=== PATIENT | female | born 1955 | race Caucasian/White ===

== ENCOUNTER → 2020-09-10 15:45 | Outpatient (CLI) | payer OTHER, SELFPAY ==
--- NOTE | ~2020-09-10 | MM_ITS ---
EXAMINATION: MM screening sena BI w katlin HISTORY: Screening TECHNIQUE: Craniocaudal and mediolateral oblique 3-D tomosynthesis images were obtained and synthetic 2-D images were generated. CAD analysis was submitted and interpreted. COMPARISON: Comparison to multiple prior studies sequentially, with oldest reviewed study dated 09/09. BREAST PARENCHYMAL COMPOSITION: There are scattered areas of fibroglandular density. FINDINGS: There is focal asymmetry medially in the left breast on CC view. There is focal asymmetry s uperiorly in the right breast on MLO view. IMPRESSION: 1. Bilateral breast asymmetries. 2. Additional spot compression and mediolateral views with possible follow-up breast ultrasound recom mended. BI-RADS Category 0: Incomplete: Needs additional imaging evaluation. Reviewed, dictated and finalized at location A. BALL GLOVE STUFFER IMPRESSION: 1. Bilateral breast asymmetries. 2. Additional spot compression and mediolateral views with possible follow-up b reast ultrasound recommended. BI-RADS Category 0: Incomplete: Needs additional imaging evaluation.
== END ==
PROVIDERS: Visit Provider Nurse Practitioner
DX: Z12.31 Encounter for screening mammogram for malignant neoplasm of breast (principal); R92.8 Other abnormal and inconclusive findings on diagnostic imaging of breast
CPT/HCPCS: 77063; 77067

== ENCOUNTER → 2020-10-22 08:35 | Outpatient (CLI) | payer OTHER, SELFPAY ==
--- NOTE | ~2020-10-22 | MMUS_ITS ---
EXAMINATION: MM diagnostic sena BI w katlin, US breast LT limited HISTORY: Left breast asymmetry on screening mammogram TECHNIQUE: Additional 3-D tomosynthesis images of the left breast were performed and synthetic 2-D im ages were generated. CAD analysis was submitted and interpreted. High resolution limited left breast ultrasound was performed. COMPARISON: 09/10/2020, 09/06/2019, 07/11/2014 FINDINGS: MAMMOGRAPHIC FINDINGS: An asymmetry persists in the far posterior third of the inner left breast at the 9:00 location 10 cm from the nipple on the craniocaudal view. No mammographic correlate is identified on the additional m ammographic views. ULTRASOUND: There is no evidence of focal abnormal solid or cystic lesion in the vicinity of the mammographic fin ding in question. IMPRESSION: 1. Probably benign left breast asymmetry. 2. Recommend 6 month follow-up left diagnostic mammogram and possible ultrasound. BI-RADS category 3, probably benign findings. Reviewed, dictated and finalized at location A. HOST IMPRESSION: 1. Probably benign left breast asymmetry. 2. Recommend 6 month follow-up left diagnostic mammogram and possible ultrasoun d. BI-RADS category 3, probably benign findings.
== END ==
PROVIDERS: PCP Family Medicine; Visit Provider Obstetrics & Gynecology Gynecology
DX: R92.8 Other abnormal and inconclusive findings on diagnostic imaging of breast (principal)
CPT/HCPCS: 76642; 77062; 77066; G0279

== ENCOUNTER → 2021-07-01 11:20 | Outpatient (CLI) | payer BC, SELFPAY ==
--- NOTE | ~2021-07-01 | US_ITS ---
EXAMINATION: US soft tissue head and neck DATE: 07/01/2021 11:54 INDICATION: Palpable abnormality at the medial side of the right clavicle TECHNIQUE: Multiple grayscale and Doppler ultrasound images of the medial right clavicular region of concern were obtained. COMPARISON: Cervical spine radiographs dated 10/01/2016 FINDINGS: The palpable abnormality of concern corresponds to the right manubrial clavicular articulation. There appears to be a greater than expected degree of incongruity between the superficial margins of both bones suggesting some subluxation likely related to prior trauma. The medial head of the right clavic le also appears to extend close to the skin surface and the contralateral ureter at the left clavicle . There appears to be some corresponding asymmetric cephalad subluxation of the medial head of the ri ght clavicle relative to the left on the prior radiographs. There is an approximately 3.0 x 2.2 x 2.2 cm region of mixed decreased echogenicity with internal hyperechoic foci of shadowing calcification which is situated between the medial head of the right clavicle and the manubrium and likely represen ts combination of synovitis and dystrophic calcification. No other abnormal masses or fluid collectio ns identified. IMPRESSION: 1. Palpable abnormality of concern appears to correspond to the medial head of the right clavicle wit h asymmetric mild right clavicular manubrial subluxation relative to the left manubrial clavicular ar ticulation, likely sequela of old trauma. No other abnormal masses or fluid collections identified. Reviewed, dictated and finalized at location B. IMPRESSION: 1. Palpable abnormality of concern appears to correspond to the medial head of the right clavicle with asymmetric mild right clavicular manubrial subluxation relative to the left manubrial clavicular articulation, likely sequela of old t rauma. No other abnormal masses or fluid collections identified.
== END ==
PROVIDERS: PCP Family Medicine; Visit Provider Family Medicine
DX: M79.89 Other specified soft tissue disorders (principal)
CPT/HCPCS: 76536

== ENCOUNTER → 2021-08-16 07:59 | Outpatient (CLI) | payer BC, SELFPAY ==
--- NOTE | ~2021-08-16 | MMUS_ITS ---
EXAMINATION: MM diagnostic sena LT w katlin, US breast LT limited HISTORY: Follow-up for probably benign left breast asymmetry TECHNIQUE: Craniocaudal, mediolateral, and mediolateral oblique 3-D tomosynthesis images of left were performed and synthetic 2-D images were generated. CAD analysis was submitted and interpreted. High resolution limited left breast ultrasound was performed. COMPARISON: 10/22/2020, 09/10/2020, 09/06/2019, 07/11/2014 BREAST PARENCHYMAL COMPOSITION: There are scattered areas of fibroglandular density. FINDINGS: MAMMOGRAPHIC FINDINGS: There is a stable asymmetry in the far posterior third of the inner left breast on the craniocaudal v iew. No suspicious interval change is identified. There is no suspicious calcification or architectur al distortion. ULTRASOUND: There is no evidence of focal abnormal solid or cystic mass in the vicinity of the mammographic findi ng in question. IMPRESSION: 1. Probably benign left breast asymmetry. 2. Recommend 6 month follow-up left diagnostic mammogram and possible ultrasound. BI-RADS category 3, probably benign findings. Reviewed, dictated and finalized at location A. IMPRESSION: 1. Probably benign left breast asymmetry. 2. Recommend 6 month follow-up left diagnostic mammogram and possible ultrasoun d. BI-RADS category 3, probably benign findings.
== END ==
PROVIDERS: Visit Provider Obstetrics & Gynecology Gynecology
DX: R92.8 Other abnormal and inconclusive findings on diagnostic imaging of breast (principal)
CPT/HCPCS: 76642; 77061; 77065; G0279

== ENCOUNTER → 2022-02-17 07:59 | Outpatient (CLI) | payer MEDICARE, SELFPAY ==
--- NOTE | ~2022-02-17 | DEXA_ITS ---
Bone Density Report Name: JEFFREY FONSECA Age: 66 Sex: Female Ethnicity: Radha Date of : 1955 Indication: osteopenia; postmenopausal Referring Provider: NADIR, AUBREY Study: Bone densitometry was performed. Exam Date: February 17, 2022 Accession number: [id number] Bone Density: Region BMD T-score Z-score Classification AP Spine (L1-L4) 0.968 -0.7 1.1 Normal Femoral Neck (Left) 0.687 -1.5 0.1 Osteopenia Total Hip (Left) 0.761 -1.5 -0.2 Osteopenia Femoral Neck (Right) 0.642 -1.9 -0.4 Osteopenia Total Hip (Right) 0.724 -1.8 -0.6 Osteopenia Total Hip Mean 0.742 -1.7 -0.4 Osteopenia World Health Organization criteria for BMD impression classify patients as: Normal (T-score at or above -1.0), Osteopenia (T-score between -1.0 and -2.5), or Osteoporosis (T-score at or below -2.5). 10-year Fracture Risk(1): Major Osteoporotic Fracture 9.9% Hip Fracture 1.3% Reported Risk Factors: [place] (), Neck BMD=0.642, BMI=27.2 (1) FRAX(R) Version 3.08. Fracture probability calculated for an untreated patient. Fracture probability may be lower if the patient has received treatment. Previous Exams: Region Exam Age BMD T-score BMD Change BMD Change Date g/cm2 vs Baseline vs Previous AP Spine(L1-L4) 02/17/2022 66 0.968 -0.7 -0.096* -0.038* 09/06/2019 63 1.006 -0.4 -0.058* 0.000 07/11/2014 58 1.005 -0.4 -0.058* -0.058* 07/25/2011 55 1.064 0.2 Total Hip(Left) 02/17/2022 66 0.761 -1.5 -0.150* -0.019 09/06/2019 63 0.780 -1.3 -0.132* -0.090* 07/11/2014 58 0.870 -0.6 -0.042* -0.042* 07/25/2011 55 0.911 -0.3 Total Hip(Right) 02/17/2022 66 0.724 -1.8 -0.148* -0.051* 09/06/2019 63 0.776 -1.4 -0.096* -0.057* 07/11/2014 58 0.833 -0.9 -0.039* -0.039* 07/25/2011 55 0.872 -0.6 *Denotes significance at 95% confidence level, LSC for AP Spine = 0.022 g/cm2, LSC for Total Hip = 0.027 g/cm2 Clinical Information Provided by Patient: Has used the following medications: Vitamin D Patient maximum height was 65.5 Menopause Age: 54 No regular weight bearing exercise Does not regularly consume dairy products Drinks caffeinated beverages Onset of menses at age 13 Number of children 2 Impression: The patient has low bone mass, based on the Right Femo
--- NOTE | ~2022-02-17 | MM_ITS ---
EXAMINATION: MM diagnostic sena BI w katlin HISTORY: Prior reported stable asymmetry in the far posterior third of inner left breast on craniocau jennifer view of left breast on 08/16/2021 diagnostic mammogram, without sonographic correlate TECHNIQUE: ML, MLO and CC 3-D tomosynthesis images of both breasts were performed and synthetic 2-D i mages were generated. CAD analysis was submitted and interpreted. COMPARISON: 10/22/2020 bilateral diagnostic mammogram and limited left breast ultrasound 09/10/2020, 09/06/2019 bilateral screening mammogram examinations FINDINGS: There are scattered areas of fibroglandular density. Stable opacity in the right posterior aspect of inner left breast on CC view. No suspicious mass or architectural distortion, malignant calcification, skin thickening or retracti on or significant new or developing density is detected. IMPRESSION: 1. No mammographic evidence of malignancy 2. Routine mammographic screening is recommended. BI-RADS Category 2: Benign finding(s). Reviewed, dictated and finalized at location A.
== END ==
PROVIDERS: PCP Obstetrics & Gynecology Gynecology; Visit Provider Nurse Practitioner
DX: M85.88 Other specified disorders of bone density and structure, other site (principal); M85.852 Other specified disorders of bone density and structure, left thigh; M85.851 Other specified disorders of bone density and structure, right thigh; R92.8 Other abnormal and inconclusive findings on diagnostic imaging of breast
CPT/HCPCS: 77062; 77066; 77080; G0279

== ENCOUNTER → 2022-08-13 11:05 | Outpatient (CLI) | payer MEDICARE, SELFPAY ==
--- NOTE | ~2022-08-13 | US_ITS ---
EXAMINATION: US transvaginal DATE: 08/13/2022 11:47 INDICATION: Postmenopausal bleeding Comparison:No prior studies for comparison. TECHNIQUE: Multiple transabdominal and endovaginal sonographic images of the pelvis performed. FINDINGS: The uterus measures 6.7 x 3 x 5 cm. The endometrial complex measures 6 mm. There is fluid i n the endometrium. The right ovary is not visualized. Left ovary measures 2.1 x 1.8 x 1.7 cm with normal Doppler signal. No free fluid in the pelvis. There is no free fluid in the pelvis. There are no abnormal masses seen on either side. IMPRESSION: 1. Thickened endomtrial complex. The differential diagnosis includes endometrial hyperplasia, polyp a nd carcinoma. Biopsy is recommended. Reviewed, dictated and finalized at location B. IMPRESSION: 1. Thickened endomtrial complex. The differential diagnosis includes endometria l hyperplasia, polyp and carcinoma. Biopsy is recommended.
== END ==
PROVIDERS: PCP Family Medicine; Visit Provider Nurse Practitioner
DX: N95.0 Postmenopausal bleeding (principal)
CPT/HCPCS: 76830

== ENCOUNTER 2022-11-14 13:07 | Outpatient (CLI) | payer MEDICARE, SELFPAY ==
[2022-11-14 13:57] LABS: Anion Gap 4 mmol/L (8-16); Blood Urea Nitrogen 15 mg/dL (7-17); Calcium 10.1 mg/dL (8.4-10.2); Carbon Dioxide 26 mmol/L (22-30); Chloride 105 mmol/L (98-107); Estimated Glomerular Filt Rate > 60; Glucose 191 mg/dL (65-110); Potassium 4.2 mmol/L (3.4-5.0); Sodium 135 mmol/L (137-145)
== END 2022-11-14 13:08 | disposition home or self-care (01) ==
PROVIDERS: Anesthesiology; PCP Family Medicine; Visit Provider Obstetrics & Gynecology Gynecology
DX: E11.9 Type 2 diabetes mellitus without complications (principal); Z01.818 Encounter for other preprocedural examination
CPT/HCPCS: 36415; 80048

== ENCOUNTER 2022-11-17 02:00 | Day surgery (SDC) | payer MEDICARE, SELFPAY ==
--- NOTE | 2022-11-13 14:03 | PC.NURSE ---
Report to the Outpatient Waiting Room, entrance under the green pavilion located off [facility], at time __0930 on date _11/17/22 . Planned Procedure Time: _1130 . Time changes happen often and if your time is changed the preop area will call you the afternoon before. - You and your visitor will be asked to self-screen and do not enter if you have any COVID symptoms. - Only one visitor is requested with a max of two and NO children visitors are allowed at this time. - The patient visitor may be requested to leave or wait in car when not with patient due to distancing restrictions. - A mask is optional within the hospital. Patients may have clear liquids (water, carbonated beverages, clear teas, apple juice) until 3 hours prior to surgery with a maximum of 20 ounces. - No food from midnight until time of surgery - Infants may have breast milk until 4 hours before surgery, infant formula 6 hours prior to surgery. - Children will be allowed to drink immediately following surgery. If applicable, please bring a bottle or sippy cup to assist with drinking. Juice, water, soda, and popsicles are readily available. For infants on formula, please bring formula the day of surgery. Pacifiers are allowed. Take the following medications with a SIP of water the morning of surgery: EYE DROP Medications to discontinue per physician __ASPIRIN PER DR HALE Date to take last dose Please no make-up, nail citizen of the [place], hairspray, perfume, deodorant, or body powder the day of surgery. No jewelry (including any body piercings) or valuables the day of surgery, leave them at home. Please take a shower or bath the night before, or the morning of, surgery with an antibacterial soap. Wear comfortable, loose fitting clothing. Children are encouraged to wear pajamas. - Jewelry must be removed prior to entering the operating room. Rings and piercings that are not removed may be cut off. - The hospital will not accept responsibility for valuables. - Please leave all valuables, including medications, at home the day of surgery. If you are going home after surgery, a licensed ready mix truck driver must drive you home. - NO public transportation without another adult if you receive anesthesia. - We recommend that an adult stay with you for 24 hours following discharge. - We also recommend that you do not drive, make important decision, drink alcoholic beverages, or take any drugs that were not prescribed by your health care provider for at least 24 hours after your discharge time. Follow any additional instructions given to you from your surgeon. If you or anyone in your household have experienced Covid symptoms in the past week, please notify your surgeon or the nurse liaison at the phone number below for possible testing. Telephone instructions given to ____PATIENT and asked if any additional questions and then verbalized understanding. Patient advised to call surgeon office or pre surgery nurse liaison [phone] if any additional questions.
[2022-11-13 14:10] VITALS: BMI 27.5
--- NOTE | 2022-11-17 07:37 | WPDHPUPDATE1 ---
History and Physical Update Update Date/Time: 11/17/22 07:37 History and Physical has been reviewed, including an updated exam of the patient. There are NO changes in the patient's condition. Risks, benefits, and alternatives have been discussed and questions answered. Patient agrees to proceed with procedure.
--- NOTE | 2022-11-17 07:37 | PM.HPGS ---
History of Present Illness History of Present Illness Consent: Risks, benefits, and alternatives have been discussed and questions answered. Patient agrees to proceed with procedure. Chief complaint: post menopausal bleeding Narrative: Maya Garcia is a 66 year old female with post menopausal bleeding and a thickened endometrial lining. It was recommended to proceed with D&C hysteroscopy. Risks of infection, bleeding perforation, and possible pathology were reviewed. Patient voices understanding and agrees to proceed. Review of Systems Review of Systems: not repeated day of surgery; patient states no changes in status [facility] Past Medical History Medical History (Updated 11/17/22 @ 07:41 by Faina Thorpe MD) BMI 28.0-28.9,adult Diabetes Mass of soft tissue of neck Non-arteritic anterior ischemic optic neuropathy Surgical History Surgical History History of cholecystectomy 1990 Hx of right cataract extraction April 2022 Family History Family History Mother Family history of diabetes mellitus in first degree relative Family history of coronary artery disease Family history of heart disease in male family member before age 55 Family history of thyroid disease Family history of glaucoma Family history of cataracts Family history of arthritis Family history of congestive heart failure Family history of hearing loss Father Family history of malignant neoplasm of esophagus Sibling Family history of obesity Family history of diabetes mellitus in first degree relative Social History Social History Smoking status: Never smoker Tobacco type: cigarettes Second hand tobacco smoke exposure: Yes Alcohol intake: current Drinks per week: 0 Alcohol use details: rare Substance use: never Substance use type: does not use Living arrangements: with family 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 Gender identity (if verbalized by the patient): Female Spiritual care concerns: No Meds Home Medications and Allergies Home Medications Medication Instructions Recorded Confirmed Type aspirin 81 mg tablet,delayed 81 mg PO DAILY 09/21/19 11/13/22 History release (Vel Low Dose Aspirin) latanoprost (PF) 0.005 % eye drops 1 drop ophthalmic (eye) HS 09/21/19 11/13/22 History flash glucose scanning reader #1 ea 01/01/21 09/24/22 Rx blood sugar diagnostic (OneTouch #100 ea 03/18/21 09/24/22 Rx Ultra Blue Test Strip) semaglutide 1 mg/dose (2 mg/1.5 See Rx Instructions .Route 04/14/22 11/13/22 Rx mL) subcutaneous pen injector .COMPLEX #3 syringes insulin degludec 100 unit/mL (3 35 unit (0.35 mL) subcut QPM #15 mL 05/05/22 11/13/22 Rx mL) subcutaneous pen (Tresiba FlexTouch U-100 insulin) atorvastatin 20 mg tablet See Rx Instructions .Route 05/17/22 11/13/22 Rx .COMPLEX #90 tabs flash glucose sensor (FreeStyle #2 ea 09/10/22 09/24/22 Rx Corinne 14 Day Sensor kit) metformin 500 mg tablet 500 mg PO BID #180 tabs 09/19/22 11/13/22 Rx citalopram 40 mg tablet See Rx Instructions .Route 09/22/22 11/13/22 Rx .COMPLEX #90 tabs timolol maleate 0.5 % eye drops 1 drp EACH EYE QAM 11/13/22 11/13/22 History lisinopril 40 mg tablet See Rx Instructions .Route 11/14/22 Rx .COMPLEX #90 tabs Allergies Allergy/AdvReac Type Severity Reaction Status Date / Time No Known Allergies Allergy Verified 11/13/22 13:55 Exam Const: General: healthy appearing and alert Orientation/consciousness: patient oriented x3 Resp: Effort & Inspection: normal respiratory effort GI: GI Palp: Yes Soft to palpation, No Tenderness to palpation present (GI) and No Palpable mass present : External Female Exam: normal external appearance Speculum Exam - Vagina: normal appearance of the vagina an
[2022-11-17 09:56] VITALS: BP 145/57; PULSE 67; RESP 16; TEMP 36.1; O2SAT 98
--- NOTE | 2022-11-17 10:01 | WPDANESEPPF ---
Anes - Initial Pre Proc Eval Procedure: Operation Date: 11/17/22 11:30 Proposed Procedures p Hysteroscopy, Dilation and Curettage - Faina Thorpe MD Date/Time: 11/17/22 10:01 Surgeon: Faina Thorpe MD Pre Op Diagnosis: post menopausal bleeding Patient Data Age: 66 Gender: F Height: 1.66 m Weight: 76.25 kg Allergies Allergy/AdvReac Type Severity Reaction Status Date / Time No Known Allergies Allergy Verified 11/13/22 13:55 Home Medications Medication Instructions Recorded Confirmed Type aspirin 81 mg tablet,delayed 81 mg PO DAILY 09/21/19 11/13/22 History release (Vel Low Dose Aspirin) latanoprost (PF) 0.005 % eye drops 1 drop ophthalmic (eye) HS 09/21/19 11/13/22 History flash glucose scanning reader #1 ea 01/01/21 09/24/22 Rx blood sugar diagnostic (OneTouch #100 ea 03/18/21 09/24/22 Rx Ultra Blue Test Strip) insulin degludec 100 unit/mL (3 35 unit (0.35 mL) subcut QPM #15 mL 05/05/22 11/13/22 Rx mL) subcutaneous pen (Tresiba FlexTouch U-100 insulin) atorvastatin 20 mg tablet See Rx Instructions .Route 05/17/22 11/13/22 Rx .COMPLEX #90 tabs flash glucose sensor (FreeStyle #2 ea 09/10/22 09/24/22 Rx Corinne 14 Day Sensor kit) metformin 500 mg tablet 500 mg PO BID #180 tabs 09/19/22 11/13/22 Rx citalopram 40 mg tablet See Rx Instructions .Route 09/22/22 11/13/22 Rx .COMPLEX #90 tabs timolol maleate 0.5 % eye drops 1 drp EACH EYE QAM 11/13/22 11/13/22 History lisinopril 40 mg tablet See Rx Instructions .Route 11/14/22 Rx .COMPLEX #90 tabs semaglutide 1 mg/dose (2 mg/1.5 See Rx Instructions .Route 11/17/22 Rx mL) subcutaneous pen injector .COMPLEX #3 syringes Patient hx anesthesia problems: none Family hx anesthesia problems: none Results Review: All pre-operative results and documents have been reviewed as part of the pre-operative evaluation. [facility] Past Medical History Medical History BMI 28.0-28.9,adult Diabetes Mass of soft tissue of neck Non-arteritic anterior ischemic optic neuropathy Surgical History Surgical History History of cholecystectomy 1990 Hx of right cataract extraction April 2022 Family History Family History Mother Family history of diabetes mellitus in first degree relative Family history of coronary artery disease Family history of heart disease in male family member before age 55 Family history of thyroid disease Family history of glaucoma Family history of cataracts Family history of arthritis Family history of congestive heart failure Family history of hearing loss Father Family history of malignant neoplasm of esophagus Sibling Family history of obesity Family history of diabetes mellitus in first degree relative Social History Social History Smoking status: Never smoker Tobacco type: cigarettes Second hand tobacco smoke exposure: Yes Alcohol intake: current Drinks per week: 0 Alcohol use details: rare Substance use: never Substance use type: does not use Living arrangements: with family 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 Informed Consent
[2022-11-17] MEDS: LACTATED RINGERS 1,000 ML 30 ML IV CONT (10:10)
[2022-11-17] MEDS: ACETAMINOPHEN 500 MG TABLET 1000 MG PO (10:13)
[2022-11-17 10:18] LABS: Glucose Point of Care 172 mg/dl (65-105)
[2022-11-17] MEDS: LIDOCAINE HCL 1% PF 30 ML VIAL 10 ML INFILTRATE (10:28)
[2022-11-17 10:36] VITALS: BP 153/67; PULSE 70; RESP 16; O2SAT 93
--- NOTE | 2022-11-17 10:36 | W.PM.PROC2 ---
Procedure Note - Detailed Date of Procedure 11/17/22 Pre-op Diagnosis post menopausal bleeding Post-op Diagnosis Same Procedure Performed D&C hysteroscopy Surgeon Faina Thorpe MD Anesthesia MAC and Local Findings the uterus sounds to 9cm and appears very atrophic Description of Procedure The patient is taken to the operating room and placed under anesthesia in the dorsal lithotomy position she was prepped and draped in the usual sterile fashion. [place] speculum was placed in the vagina and the cervix grasped on the anterior lip with a tenaculum. The cervix is injected in each quadrant with 1% lidocaine. The uterus is sounded to 9cm. The Aveta hysteroscope is placed with the above-stated findings. The hysteroscope was removed. Endometrium was curetted in a sharp fashion until a good uterine cry was noted in all areas. Minimal material was obtained consistent with the atrophic appearance. All instruments are removed. Sponge, needle, and instrument counts are correct per the OR staff. The patient was awakened from anesthesia and taken to recovery in stable condition. Estimated Blood Loss 5 Drains No Packing No Pathology Yes ( Endometrial curettings) Complications No immediate complications Condition Stable
[2022-11-17 10:41] LABS: Glucose Point of Care 162 mg/dl (65-105)
[2022-11-17 11:05] VITALS: BP 143/71; PULSE 60; RESP 14; O2SAT 94
[2022-11-17 11:35] VITALS: BP 148/62; PULSE 60; RESP 16
[2022-11-17 11:47] VITALS: BP 149/71; PULSE 62; RESP 16
== END 2022-11-17 11:50 | disposition home or self-care (01) ==
PROVIDERS: PCP Family Medicine; Visit Provider Obstetrics & Gynecology Gynecology
PROC: 0U5B8ZZ Destruction of Endometrium, Via Natural or Artificial Opening Endoscopic (ICD-10-PCS; CPT 58563; principal; 2022-11-17 11:30)
DX: N95.0 Postmenopausal bleeding (principal); E11.9 Type 2 diabetes mellitus without complications; Z79.82 Long term (current) use of aspirin; Z79.4 Long term (current) use of insulin; Z79.899 Other long term (current) drug therapy
CPT/HCPCS: 58558; 36415; 80048; 82948; 88305; A9270; J2704; J7120

== ENCOUNTER → 2023-02-19 10:23 | Outpatient (CLI) | payer MEDICARE, SELFPAY ==
--- NOTE | ~2023-02-19 | MM_ITS ---
EXAMINATION: MM screening sena BI w katlin HISTORY: Screening mammogram TECHNIQUE: Craniocaudal and mediolateral oblique 3-D tomosynthesis images were obtained and synthetic 2-D images were generated. CAD analysis was submitted and interpreted. COMPARISON: February 17, 2022 diagnostic bilateral mammogram 08/16/2021 diagnostic left mammogram and limited left breast ultrasound 10/22/2020 bilateral diagnostic mammography and limited left breast ultrasound 09/10/2020 bilateral screening mammogram BREAST PARENCHYMAL COMPOSITION: There are scattered areas of fibroglandular density. FINDINGS: There is no evidence of suspicious mass, calcification, or architectural distortion to sugg est malignancy in either breast. There has been no suspicious interval change. IMPRESSION: 1. No mammographic evidence of malignancy. 2. Recommend routine screening mammography in one year. BI-RADS Category 1: Negative Reviewed, dictated and finalized at location A.
== END ==
PROVIDERS: PCP Nurse Practitioner; Visit Provider Nurse Practitioner
DX: Z12.31 Encounter for screening mammogram for malignant neoplasm of breast (principal)
CPT/HCPCS: 77063; 77067

== ENCOUNTER 2024-10-11 14:26 | Outpatient (CLI) | payer MEDICARE, SELFPAY ==
--- NOTE | ~2024-10-11 | MM_ITS ---
EXAMINATION: MM screening sena BI w katlin HISTORY: Screening TECHNIQUE: Craniocaudal and mediolateral oblique 3-D tomosynthesis images were obtained and synthetic 2-D images were generated. CAD analysis was submitted and interpreted. COMPARISON: Comparison to multiple prior studies sequentially, with oldest reviewed study dated 08/10. BREAST PARENCHYMAL COMPOSITION: Not dense: There are scattered areas of fibroglandular density. FINDINGS: There is no evidence of suspicious mass, calcification, or architectural distortion to sugg est malignancy in either breast. There has been no suspicious interval change. IMPRESSION: 1. No mammographic evidence of malignancy. 2. Recommend routine screening mammography in one year. BI-RADS Category 1: Negative Reviewed, dictated and finalized at location B. [employer]ER
== END 2024-10-11 14:27 | disposition home or self-care (01) ==
LOC: MICIMG 14:27
PROVIDERS: PCP Nurse Practitioner; Visit Provider Nurse Practitioner
DX: Z12.31 Encounter for screening mammogram for malignant neoplasm of breast (principal); M85.88 Other specified disorders of bone density and structure, other site
CPT/HCPCS: 77063; 77067

== ENCOUNTER 2024-12-27 08:02 | Outpatient (CLI) | payer MEDICARE, SELFPAY ==
--- NOTE | ~2024-12-27 | DEXA_ITS ---
Bone Density Report Name: JEFFREY FONSECA Age: 69 Sex: Female Ethnicity: Radha Date of : 1955 Indication: postmenopausal; screening for osteoporosis; Referring Provider: DORA HALE Study: Bone densitometry was performed. Exam Date: December 27, 2024 Accession number: [id number] Bone Density: Region BMD T-score Z-score Classification AP Spine(L1-L4) 1.018 -0.3 1.7 Normal Femoral Neck (Left) 0.651 -1.8 -0.1 Osteopenia Total Hip (Left) 0.771 -1.4 0.0 Osteopenia Femoral Neck (Right) 0.605 -2.2 -0.5 Osteopenia Total Hip (Right) 0.739 -1.7 -0.3 Osteopenia Total Hip Mean 0.755 -1.6 -0.2 Osteopenia World Health Organization criteria for BMD impression classify patients as: Normal (T-score at or above -1.0), Osteopenia (T-score between -1.0 and -2.5), or Osteoporosis (T-score at or below -2.5). 10-year Fracture Risk(1): Major Osteoporotic Fracture 11% Hip Fracture 2.0% Reported Risk Factors: [place] (), Neck BMD=0.605, BMI=36.3 (1) FRAX(R) Version 3.08. Fracture probability calculated for an untreated patient. Fracture probability may be lower if the patient has received treatment. Clinical Information Provided by Patient: Has used the following medications: Vitamin D Patient maximum height was 56 Menopause Age: 55 No regular weight bearing exercise Drinks caffeinated beverages Onset of menses at age 15 Number of children 2 Impression: The patient has low bone mass, based on the Right Femoral Neck T-score. The patient has an estimated ten-year risk of hip fracture of 2% and an estimated ten-year risk of major fracture of 11%, based on the WHO FRAX algorithm. Discussion: BONE DENSITY IS LOW AT ONE OR MORE SKELETAL SITES. This patient's lowest T-score is low at one or more skeletal sites. It meets the World Health Organization's (WHO) criteria for ?low bone mass? (T-score between -1.0 and -2.5). The patient's 10-year risk of fracture as calculated by FRAX is less than the threshold where pharmacological therapy is recommended by the National Osteoporosis Foundation (NOF). However, all treatment decisions require clinical judgment and consideration of individual patient factors, including patient preferences, comorbidities, previous drug use, risk factors not captured in the FRAX model (e.g., frailty, falls, vitamin D deficiency, increased bone turnover, interval significant decline in bone density) and possible under or overestimation of fracture risk by FRAX. The patient should follow a healthful lifestyle (good nutrition with adequate calcium and vitamin D, and appropriate weight-bearing exercise). Follow-Up: Consider repeating this study in 2 to 3 years to reassess this patient's status, or sooner if there is some new clinical indication. Reported by: JEAN on 12/27/2024 8:41:00 AM. Reviewed, dictated and finalized at location [facility]
--- OUTSIDE RECORDS SUMMARY | 2024-12-27 08:10 | XMS_ITS | Referral Summary ---
Author Organization [facility] Address [address] [place] [address] Care Team Providers Care Laundry Press Operator Name Role Phone Giovanni Hansen MD Primary Care Provider + [phone] Daniel Barnes MD Unavailable [phone] Juan Solorzano OD Unavailable [phone] Eric Norris MD Unavailable [phone] Allergies No known active allergies Medications insulin lispro (HumaLOG) 100 unit/mL cartridge inject by subcutaneous route per prescriber's instructions. Insulin dosing requires individualization. 0 Cartridge 0 04/15/20 16 Active citalopram (CeleXA) 10 mg tablet take 1 tablet by oral route every day 0 0 04/15/20 16 Active Additional Information Patient not taking.Reported on 04/14/2023 multivitamin capsule take 1 capsule by oral route every day 0 0 04/15/20 16 Active atorvastatin (LIPITOR) 20 mg tablet take 1 tablet by oral route every day 0 0 04/15/20 16 Active metFORMIN (GLUCOPHAGE) 1,000 mg tablet take 1 tablet by oral route 2 times every day with morning and evening meals 0 0 04/15/20 16 Active Additional Information Patient not taking.Reported on 04/14/2023 lisinopril (PRINIVIL,ZEST RIL) 40 mg tablet take 1 tablet by oral route every day 0 0 04/15/20 16 Active HUMALOG KWIKPEN INSULIN 100 unit/mL insulin pen as needed 06/06/20 18 Active latanoprost (XALATAN) 0.005 % ophthalmic solution 06/03/20 18 Active TRESIBA FLEXTOUCH U-100 100 unit/mL (3 mL) insulin pen INJECT 45 UNITS SUBCUTANEOUSLY PER INSULIN PROTOCOL 0 08/17/20 19 Active meloxicam (MOBIC) 15 mg tablet Take 15 mg by mouth daily 10/30/20 20 Active Ozempic 1 mg/dose (2 mg/1.5 mL) pen injector every 7 days 09/12/20 20 Active timolol (TIMOPTIC) 0.5 % ophthalmic solution Administer 1 drop into both eyes every morning 09/06/20 20 Active OneTouch Ultra Blue Test Strip strip as directed 02/20/20 21 Active FreeStyle Corinne 14 Day Sensor kit as directed 02/20/20 21 Active ergocalciferol (VITAMIN D) 50,000 unit capsule Take 50,000 Units by mouth 08/16/20 21 Active citalopram (CeleXA) 40 mg tablet Take 1 tablet (40 mg total) by mouth daily 07/28/20 21 Active metFORMIN (GLUCOPHAGE) 500 mg tablet Take 2 tablets (1,000 mg total) by mouth 2 (two) times a day 07/27/20 21 Active Active Problems Problem Noted Date Diagnosed Date Optic neuropathy, right 10/11/2019 Assessment & Plan (06/05/2021 12:26 PM CDT): Patient here for f/u of right optic neuropathy (initially presumed ischemic but last visit w/ possible worsening visual field). MRI brain/orbits w/wo was repeated after her last visit (11/2020) w/o evidence of a structural cause. She denies any subjective concerns or worsening at this time. On exam, her VA remains stable. Her anterior exam is notable for a significant cataract OD>>OS. Otherwise, her exam remains unchanged from prior. Her size 5 HVF OD does appear to have some progression still since her last visit, however, her OCT RNFL and average GCL+IPL appear stable from prior. Given her continued slow progression of her HVF with normal OCT parameters and lack of subjective change, this may be due to her more prominent cataract. Thus, at this time, we will hold off on additional testing and continue to monitor her on a 6 month basis. Her IOP was elevated OD>OS today, and she follows w/ Dr. Barnes at [facility] in [place]. We discussed how she should notify her specialist. From her recollection he may consider cataract surgery OD in the near future as well. 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 Not on file Not on file Last Filed Vital Signs Vital Sign Reading Time Taken Comments Blood Pressure 148/72 08/04/2024 8:23 AM CDT Pulse 77 08/04/2024 8:23 AM CDT Temperature - - Respiratory Rate - - Oxygen Saturation - - Inhaled Oxygen Concentration - - Weight 73 kg (161 lb) 08/04/2024 8:23 AM CDT Height 165.1 cm (5' 5 ) 08/04/2024 8:23 AM CDT Body Mass Index 26.79 08/04/2024 8:23 AM CDT Plan of Treatment Not on file [place] [address] MEDICARE SOLUTIONS MED[employer]ARE SOLUTIONS Care Teams Laundry Press Operator Relationship Specialty Start Date End Date Giovanni Hansen MD PCP - General Family Medicine 06/16/18 Daniel Barnes MD [address] [place] [address] Primary Eye Care Provider Ophthalmology 08/31/19 Juan Solorzano OD [address] [place] [address] Primary Eye Care Provider Plating Tank Operator Apprentice 08/31/19 Eric Norris MD [address] [place] [address] Referring Physician Ophthalmology 11/22/21
--- OUTSIDE RECORDS SUMMARY | 2024-12-27 08:10 | XMS_ITS | Clinical Summary ---
Author Organization [facility] Address [address] [place] [address] Phone Care Team Providers Care Information Systems Supervisor Name Role Phone Giovanni Hansen MD Primary Care Provider [phone] Allergies No known active allergies Medications atorvastatin (LIPITOR) 20 mg tablet TAKE 1 TABLET BY MOUTH EVERY DAY 0 Active citalopram (CeleXA) 40 mg tablet TAKE 1 TABLET BY MOUTH EVERY DAY 0 Active insulin degludec (TRESIBA) 100 unit/mL pen syringe INJECT 45 UNITS SUBCUTANEOUSLY PER INSULIN PROTOCOL 9 Active latanoprost (XALATAN) 0.005 % solution 8 Active liraglutide (VICTOZA) 0.6 mg/0.1 mL (18 mg/3 mL) 8 Active lisinopriL (PRINIVIL) 40 mg tablet TAKE 1 TABLET BY MOUTH EVERY DAY 0 Active metFORMIN (GLUCOPHAGE) 500 mg tablet TAKE 2 TABLETS BY MOUTH TWICE A DAY 0 Active meloxicam (MOBIC) 15 mg tablet TAKE 1 TABLET BY MOUTH EVERY DAY 30 Tablet 3 1 Active semaglutide (Ozempic) 1 mg/dose (4 mg/3 mL) Pen Injector Inject 2 mg (1.5 mL) subcutaneously once weekly; Will inject 1mg twice to equal 2mg dose (not available) 6 mL 3 Active semaglutide (Ozempic) 2 mg/dose (8 mg/3 mL) Pen Injector Inject 2 mg (0.75 mL) subcutaneously once weekly. 3 mL 2 01/15/2024 12:00 PM PRODUCTION PLANNER 3 Active semaglutide (Ozempic) 2 mg/dose (8 mg/3 mL) Pen Injector Inject 2 mg by subcutaneous injection every 7 days. 3 mL 3 12/15/2024 7:37 PM PRODUCTION PLANNER 4 Active Active Problems No known active problems Encounters Date Type Department Care Team Description 12/01/2024 External Device Data STL ABSTRACTION Provider, Abstract 2024 External Device Data STL ABSTRACTION Provider, Abstract from Last 3 Months Family History Medical History Relation Name Comments Cancer Father Diabetes Mother Hypertension Mother Relation Name Status Comments Father Mother Social History Tobacco Use Types Packs/Day Years Used Date Smoking Tobacco: Never Smokeless Tobacco: Never Alcohol Use Standard Drinks/Week Comments Not Currently 0 (1 standard drink = 0.6 oz pur e alcohol) Comments Unknown Sex and Gender Information Value Date Recorded Sex Assigned at Not on file Legal Sex Female 12:22 PM CDT Gender Identity Not on file Sexual Orientation Not on file Last Filed Vital Signs Vital Sign Reading Time Taken Comments Blood Pressure 159/89 02/17/2021 12:47 PM CDT Pulse 112 02/17/2021 12:47 PM CDT Temperature 36.9 C (98.4 F) 02/17/2021 12:47 PM CDT Respiratory Rate - - Oxygen Saturation 97% 02/17/2021 12:47 PM CDT Inhaled Oxygen Concentration - - Weight 79.4 kg (175 lb) 02/17/2021 12:47 PM CDT Height 166.4 cm (5' 5.5 ) 02/17/2021 12:47 PM CD T Body Mass Index 28.68 02/17/2021 12:47 PM CDT Plan of Treatment Health Maintenance Due Date Last Done Comments DTAP/TDAP/TD VACCINES (1 - Tdap) 1975 BREAST CANCER SCREENING 1996 COLORECTAL SCREENING 2001 Colorectal Cancer Screening 2001 FIT-DNA Q 3 years 2001 FIT/FOBT Q 1 year 2001 Flex Sig/CT Colonography Q 5 years 2001 PNEUMOCOCCAL VACCINE 65+ YEARS (1 of 1 - PCV) 11/22/19 07 ZOSTER VACCINE (1 of 2) 2006 OSTEOPOROSIS SCREENING 2021 INFLUENZA VACCINE (#1) 2024 RSV VACCINE (60+ or ) (1 - 1-dose 75+ series) [address] [facility] [employer] RX Member Subscriber Plan / Payer (Ef fective 2021-Present) Name:Maya Garcia Relation to Subscriber:Self Name:Maya Garcia Payer ID:Not on file Group ID:[id number] Type:RX Medicare Part D Address: [place], [place] Care Teams Information Systems Supervisor Relationship Specialty Start Date End Date Giovanni Hansen MD [address] [place] [address] PCP - General Family Practice 08/09/20
--- OUTSIDE RECORDS SUMMARY | 2024-12-27 08:10 | XMS_ITS | Patient Health Summary ---
Author Organization [facility] Address [address] [place] [address] Care Team Providers Care Speech Lang Path Name Role Phone Giovanni Hansen MD Primary Care Provider [phone] [facility],non-owned Affiliates and Associated Physician Practices is amultiple site organization consisting of ambulatory clinics and hospital sitesin [place], [place], [place] and [place]. This disclosure is being madepursuant to the Care Everywhere program and may not contain all information available regarding this patient. Last updated 18.[facility] Social History Tobacco Use Types Packs/Day Years Used Date Smoking Tobacco: Never Assessed Sex and Gender Information Value Date Recorded Sex Assigned at Not on file Gender Identity Not on file Sexual Orientation Not on file Care Teams Speech Lang Path Relationship Specialty Start Date End Date Giovanni Hansen MD [address] [place] [address] PCP - General 08/09/19
--- OUTSIDE RECORDS SUMMARY | 2024-12-27 08:10 | XMS_ITS | Clinical Summary ---
Author Organization [facility] Address [address] [facility] [place] [address] Care Team Providers Care Director Of Infection Control Name Role Phone Giovanni Hansen MD Primary Care Provider [phone] Source Comments [facility],non-owned Affiliates and Associated Physician Practices is amultiple site organization consisting of ambulatory clinics and hospital sitesin [place], [place], [place] and [place]. This disclosure is being madepursuant to the Care Everywhere program and may not contain all information available regarding this patient. Last updated 18.[facility] Social History Tobacco Use Types Packs/Day Years Used Date Smoking Tobacco: Never Assessed Sex and Gender Information Value Date Recorded Sex Assigned at Not on file Gender Identity Not on file Sexual Orientation Not on file Plan of Treatment Health Maintenance Due Date Last Done Comments BONE DENSITY TESTING 1955 COLOGUARD (AGES 45-75) - COL ON CA SCREENING 1956 COLON MONITORING 1956 COLONOSCOPY - COLON CA SCREENING 1956 CT COLONOGRAPHY - COLON CA SCREENING 1956 Colorectal Cancer Screening 1956 FIT - COLON CA SCREENING 1956 FLEX SIG - COLON CA SCREENING 1956 LIPID TESTING 1956 MAMMOGRAM 1956 HEPATITIS C SCREENING 11/18/1974 DTAP/TDAP/TD VACCINES (1 - Tdap) 1975 PNEUMOCOCCAL VACCINE 50+ (1 of 1 - PCV) 2006 ZOSTER VACCINE (1 of 2) 2006 COVID-19 VACCINE ( - 2023-2 5 season) 2024 INFLUENZA VACCINE (#1) 2024 DEPRESSION SCREENING 11/09/2024 Respiratory Syncytial Virus (RSV) Vaccine Pt: or over 60 yrs (1 - 1-dose 75+ series) 2031 HEPATITIS B VACCINE Aged Out No longe r eligible based on patient's age to complete this topic HIB VACCINE Aged Out No longer eligi ble based on patient's age to complete this topic HPV VACCINE Aged Out No longer eligi ble based on patient's age to complete this topic MENINGOCOCCAL (Group B) VACCINE Aged Out No longer eligible based on patient's age to complete this topic MENINGOCOCCAL VACCINE Aged Out No aminah melvin eligible based on patient's age to complete this topic Care Teams Director Of Infection Control Relationship Specialty Start Date End Date Giovanni Hansen MD [address] [place] [address] PCP - General 08/09/19
--- OUTSIDE RECORDS SUMMARY | 2024-12-27 08:10 | XMS_ITS | Referral Summary ---
Author Organization [facility] Address [address] [place] [address] Care Team Providers Care Chief Contract Officer Name Role Phone Giovanni Hansen MD Primary Care Provider Source Comments [facility],non-owned Affiliates and Associated Physician Practices is amultiple site organization consisting of ambulatory clinics and hospital sitesin [place], [place], [place] and [place]. This disclosure is being madepursuant to the Care Everywhere program and may not contain all information available regarding this patient. Last updated 18.[facility] Social History Tobacco Use Types Packs/Day Years Used Date Smoking Tobacco: Never Assessed Sex and Gender Information Value Date Recorded Sex Assigned at Not on file Gender Identity Not on file Sexual Orientation Not on file Plan of Treatment Not on file Care Teams Chief Contract Officer Relationship Specialty Start Date End Date Giovanni Hansen MD [address] [place] [address] PCP - General 08/09/19
--- OUTSIDE RECORDS SUMMARY | 2024-12-27 08:10 | XMS_ITS | Clinical Summary ---
Author Organization [facility] Address [address] [place] [address] Care Team Providers Care Mid Level Developer Name Role Phone Giovanni Hansen MD Primary Care Provider + [phone] Daniel Barnes MD Unavailable [phone] Juan Solorzano OD Unavailable [phone] Eric Norris MD Unavailable [phone] Allergies No known active allergies Medications [...] and she follows w/ Dr. Barnes at [facility] in [place]. We discussed how she should notify her specialist. From her recollection he may consider cataract surgery OD in the near future as well. Ptosis of both eyelids 06/16/2018 Dermatochalasis of eyelids of both eyes 06/16/20 18 Surgical History Surgery Date Site/Laterality Comments CHOLECYSTECTOMY Cholecystectomy CARPAL TUNNEL RELEASE 11/09/2017 - 11/08/2018 Bilateral HAND SURGERY Medical History Medical History Date Comments Type 2 diabetes mellitus (HCC) D iabetes type 2; Comments: DWL 04/15/2016 - Migraine without aura Hypertension Depression Family History Medical History Relation Name Comments Cancer Other 1 Family history of Cancer, unknown; Diabetes Other 2 Family history of Diabetes mellitus; Arthritis Other 3 Family history of Arthritis; Coronary artery disease Other 4 Fami ly history of Coronary artery disease; Heart disease Other 5 Hypertension Other 5 Family history of Hypertension; Relation Name Status Comments Other 1 Other 2 Other 3 Other 4 Other 5 Social History Tobacco Use Types Packs/Day Years Used Date Smoking Tobacco: Never Smokeless Tobacco: Never Comments Unknown Sex and Gender Information Value Date Recorded Sex Assigned at Not on file 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 Gender Identity Not on file Sexual Orientation Not on file 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 Not on file Obstetrics History Last Filed Vital Signs Vital Sign Reading [...] 08/04/2024 8:23 AM CDT Plan of Treatment Health Maintenance Due Date Last Done Comments Breast Cancer Screening-Mammogram 1956 Colon Cancer Screening-Colonoscopy 1956 Depression Screening 1956 Fall Risk Assessment 1956 Hepatitis C Screening 1956 Osteoporosis Screening-Bone Density Scan 1956 DTaP/Tdap/Td Vaccine (1 - Tdap) 1967 Hepatitis B Screening 1974 Zoster Vaccine (2 of 2) 09/14/2019 07/20/2019 Pneumococcal vaccine 65+ (2 of 2 - PCV) 07/20/2020 0 07/20/2019 Well Visit 65+ 2021 Influenza Vaccine (#1) 2024 07/20/2019 Insurance [employer]ICARE [employer] [facility] Address: [address] [address] [place] [address] MEDICARE [employer] [facility] Address: [address] [address] [place] [address] MEDICARE SOLUTIONS Care Teams Mid Level Developer Relationship Specialty Start Date End Date Giovanni Hansen MD PCP - General Family Medicine 06/16/18 Daniel Barnes MD [address] [place] [address] Primary Eye Care Provider Ophthalmology 08/31/19 Juan Solorzano, OD [address] [place] [address] Primary Eye Care Provider Map Editor 08/31/19 Eric Norris MD [address] [place] [address] Referring Physician Ophthalmology 11/22/21
--- OUTSIDE RECORDS SUMMARY | 2024-12-27 08:10 | XMS_ITS | Encounter Summary ---
Author Organization [facility] Address [address] [place] [address] Care Team Providers Care Patient Registration Manager Name Role Phone Gioavnni Hansen MD Primary Care Provider + [phone] Daniel Barnes MD Unavailable [phone] Juan Solorzano OD Unavailable [phone] Eric Norris MD Unavailable [phone] Encounter Details Date Type Department Care Team (Late st Contact Info) Description 12/04/2020 Telephone [facility] Radiology [address] [place] [address] Thai Parker MD [address] [phone] Social History Tobacco Use Types Packs/Day Years Used Date Smoking Tobacco: Never Smokeless Tobacco: Never Comments Unknown Sex and Gender Information Value Date Recorded Sex Assigned at Not on file 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 Gender Identity Not on file Sexual Orientation Not on file 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 Not on file Not on file documented as of this encounter Plan of Treatment Not on file documented as of this encounter Visit Diagnoses Not on filedocumented in this encounter Care Teams Patient Registration Manager Relationship Specialty Start Date End Date Giovanni Hansen MD PCP - General Family Medicine 06/16/18 Daniel Barnes MD [address] [place] [address] Primary Eye Care Provider Ophthalmology 08/31/19 Juan Solorzano OD [address] [place] [address] Primary Eye Care Provider Maintenance Instructor 08/31/19 Eric Norris MD [address] [place] [address] Referring Physician Ophthalmology 11/22/21 documented as of this encounter
== END 2024-12-27 08:03 | disposition home or self-care (01) ==
PROVIDERS: PCP Nurse Practitioner; Visit Provider Obstetrics & Gynecology Gynecology
DX: Z78.0 Asymptomatic menopausal state (principal); M85.852 Other specified disorders of bone density and structure, left thigh; M85.851 Other specified disorders of bone density and structure, right thigh
CPT/HCPCS: 77080

== ENCOUNTER 2025-01-20 12:54 | Outpatient (CLI) | payer MEDICARE, SELFPAY ==
--- OUTSIDE RECORDS SUMMARY | 2025-01-20 12:59 | XMS_ITS | Clinical Summary ---
Author Organization [facility] Address [address] [place] [address] Care Team Providers Care Professor Of Archaeology Name Role Phone Giovanni Hansen MD Primary Care Provider + [phone] Daniel Barnes MD Unavailable [phone] Juan Solorzano OD Unavailable [phone] Eric Norris MD Unavailable [phone] Allergies No known active allergies Medications [...] and she follows w/ Dr. Barnes at [facility] in [place]. 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
--- OUTSIDE RECORDS SUMMARY | 2025-01-20 12:59 | XMS_ITS | Patient Health Summary ---
Author Organization [facility] Address [address] [place] [address] Care Team Providers Care Parking Officer Name Role Phone Giovanni Hansen MD Primary Care Provider Note from [facility],non-owned Affiliates and Associated Physician Practices is amultiple site organization consisting of ambulatory clinics and hospital sitesin [place], [place], [place] and [place]. This disclosure is being madepursuant to the Care Everywhere program and may not contain all information available regarding this patient. Last updated 18.[facility] Social History Tobacco Use Types Packs/Day Years Used Date Smoking Tobacco: Never Assessed Sex and Gender Information Value Date Recorded Sex Assigned at Not on file Gender Identity Not on file Sexual Orientation Not on file Care Teams Parking Officer Relationship Specialty Start Date End Date Giovanni Hansen MD [address] [place] [address] PCP - General 08/09/19
--- OUTSIDE RECORDS SUMMARY | 2025-01-20 12:59 | XMS_ITS | Clinical Summary ---
Author Organization [facility] Address [address] [place] [address] Care Team Providers Care Helpdesk Specialist Name Role Phone Giovanni Hansen MD Primary Care Provider [phone] Source Comments [facility],non-owned Affiliates and Associated Physician Practices is amultiple site organization consisting of ambulatory clinics and hospital sitesin [place], [place], [place] and [place]. This disclosure is being madepursuant to the Care Everywhere program and may not contain all information available regarding this patient. Last updated 18.[facility] bMobilized Social History Tobacco Use Types Packs/Day Years [...] VACCINE (1 of 2) 2006 COVID-19 VACCINE (1 - 2023-2 5 season) 2024 INFLUENZA VACCINE [...] to complete this topic MENINGOCOCCAL (Group B) VACC INE SHARED DECISION-MAKING Aged Out No longer eligibl e based on patient's age to complete this topic MENINGOCOCCAL GROUPS A/C/Y/W VACCINE Aged Out No longer eligible b ased on patient's age to complete this topic Care Teams Helpdesk Specialist Relationship Specialty Start Date End Date Giovanni Hansen MD [address] [place] [address] PCP - General 08/09/19
--- OUTSIDE RECORDS SUMMARY | 2025-01-20 12:59 | XMS_ITS | Referral Summary ---
Author Organization [facility] Address [address] [place] [address] Care Team Providers Care Plating Operator Name Role Phone Giovanni Hansen MD Primary Care Provider + [phone] Daniel Barnes MD Unavailable [phone] Juan Solorzano OD Unavailable [phone] Eric Norris MD Unavailable [phone] Allergies No known active allergies Medications [...] and she follows w/ Dr. Barnes at [facility] in [place]. 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
--- OUTSIDE RECORDS SUMMARY | 2025-01-20 12:59 | XMS_ITS | Encounter Summary ---
Author Organization [facility] Address [address] [place] [address] Care Team Providers Care Industrial Gas Production Operator Name Role Phone Giovanni Hansen MD Primary Care Provider + [phone] Daniel Barnes MD Unavailable [phone] Juan Solorzano OD Unavailable [phone] Eric Norris MD Unavailable [phone] Encounter Details Date Type Department Care Team (Late st Contact Info) Description 12/04/2020 Telephone [facility] Radiology [address] [place] [address] Thai Parker MD [address] [id number] Social History Tobacco Use Types Packs/Day Years Used Date Smoking Tobacco: Never Smokeless Tobacco: Never Comments Unknown Sex and Gender Information Value Date Recorded Sex Assigned at Not on file Legal Sex Female 2:37 AM 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 SPECIALIST Gender Identity Not on file Sexual Orientation Not on file 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 Not on file Not on file documented as of this encounter Plan of Treatment Not on file documented as of this encounter Visit Diagnoses Not on filedocumented in this encounter Care Teams Industrial Gas Production Operator Relationship Specialty Start Date End Date Giovanni Hansen MD PCP - General Family Medicine 06/16/18 Daniel Barnes MD [address] [place] [address] Primary Eye Care Provider Ophthalmology 08/31/19 Juan Solorzano OD [address] [place] [address] Primary Eye Care Provider Order Runner 08/31/19 Eric Norris MD [address] [place] [address] Referring Physician Ophthalmology 11/22/21 documented as of this encounter
--- OUTSIDE RECORDS SUMMARY | 2025-01-20 12:59 | XMS_ITS | Clinical Summary ---
Author Organization [facility] Address [address] [place] [address] Phone Care Team Providers Care Senior Data Quality Analyst Name Role Phone Giovanni Hansen MD Primary Care Provider [phone] Allergies No known active allergies Medications atorvastatin [...] weekly. 3 mL 2 01/15/2024 12:00 PM YARDMASTER 3 Active semaglutide (Ozempic) 2 mg/dose (8 mg/3 mL) Pen Injector Inject 2 mg by subcutaneous injection every 7 days. 3 mL 3 12/15/2024 7:37 PM YARDMASTER 4 Active Active Problems No known active problems Encounters Date Type Department Care Team Description 01/18/2025 External Device Data [facility] ABSTRACTION Provider, Abstract 01/17/2025 External Device Data [facility] ABSTRACTION Provider, Abstract 01/14/2025 External Device Data [facility] ABSTRACTION Provider, Abstract 01/14/2025 External Device Data [facility] ABSTRACTION Provider, Abstract 01/11/2025 External Device Data [facility] ABSTRACTION Provider, Abstract 01/11/2025 External Device Data [facility] ABSTRACTION Provider, Abstract 12/28/2024 External Device Data [facility] ABSTRACTION Provider, Abstract 12/01/2024 External Device Data [facility] ABSTRACTION Provider, [...] Colonography Q 5 years 2001 PNEUMOCOCCAL VACCINE 50+ YEARS (1 of 1 - PCV) 11/22/19 07 ZOSTER VACCINE (1 of 2) 2006 OSTEOPOROSIS SCREENING 2021 INFLUENZA VACCINE (#1) 2024 RSV VACCINE (60+ or ) (1 - 1-dose 75+ series) 2031 Insurance [facility] [employer] RX Member Subscriber Plan / Payer (Ef fective 2021-Present) Name:Maya Garcia Relation to Subscriber:Self Name:Maya Garcia Payer ID:Not on file Group ID:[id number] Type:RX Medicare Part D Address: [place], [place] Care Teams Senior Data Quality Analyst Relationship Specialty Start Date End Date Giovanni Hansen MD [address] [place] [id number] PCP - General Family Practice 08/09/20
--- OUTSIDE RECORDS SUMMARY | 2025-01-20 12:59 | XMS_ITS | Encounter Summary ---
Author Organization [facility] Address [address] [place] [address] Care Team Providers Care Grated Cheese Maker Name Role Phone Giovanni Hansen MD Primary Care Provider [phone] Encounter Details Date Type Department Care Team (Late st Contact Info) Description 01/18/2025 External Device Data [facility] ABSTRACTION Provider, Abstract NO ADDRESS ON FILE Social History Tobacco Use Types Packs/Day Years Used Date Smoking Tobacco: Never Smokeless Tobacco: Never Alcohol Use Standard Drinks/Week Comments Not Currently 0 (1 standard drink = 0.6 oz pur e alcohol) Comments Unknown Sex and Gender Information Value Date Recorded Sex Assigned at Not on file Legal Sex Female 12:22 PM CDT Gender Identity Not on file Sexual Orientation Not on file documented as of this encounter Plan of Treatment Not on file documented as of this encounter Visit Diagnoses Not on filedocumented in this encounter Care Teams Grated Cheese Maker Relationship Specialty Start Date End Date Giovanni Hansen MD [address] [place] [address] PCP - General Family Practice 08/09/20 documented as of this encounter
--- OUTSIDE RECORDS SUMMARY | 2025-01-20 12:59 | XMS_ITS | Referral Summary ---
Author Organization [facility] Address [address] [place] [address] Care Team Providers Care Commercial Ocean Clammer Name Role Phone Giovanni Hansen MD Primary Care Provider [phone] Source Comments [facility],non-owned Affiliates and Associated Physician Practices is amultiple site organization consisting of ambulatory clinics and hospital sitesin [place], [place], [place] and [place]. This disclosure is being madepursuant to the Care Everywhere program and may not contain all information available regarding this patient. Last updated 18.[facility] Social History Tobacco Use Types Packs/Day Years Used Date Smoking Tobacco: Never Assessed Sex and Gender Information Value Date Recorded Sex Assigned at Not on file Gender Identity Not on file Sexual Orientation Not on file Plan of Treatment Not on file Care Teams Commercial Ocean Clammer Relationship Specialty Start Date End Date Giovanni Hansen MD [address] [place] [id number] PCP - General 08/09/19
[2025-01-20 16:17] LABS: Albumin Level 4.2 g/dL (3.5-5.1); Calcium 10.7 mg/dL (8.4-10.2); Estimated Glomerular Filt Rate 57
== END 2025-01-20 12:55 | disposition home or self-care (01) ==
LOC: ANHLAB 12:55
PROVIDERS: Visit Provider Internal Medicine Hematology & Oncology
DX: Z79.899 Other long term (current) drug therapy (principal)
CPT/HCPCS: 36415; 82040; 82310; 82565

== ENCOUNTER 2025-10-13 10:55 | Outpatient (CLI) | payer MEDICARE, SELFPAY ==
--- NOTE | ~2025-10-13 | MM_ITS ---
EXAMINATION: MM screening sena BI w katlin HISTORY: Screening. TECHNIQUE: Craniocaudal and mediolateral oblique 3-D tomosynthesis images were obtained and synthetic 2-D images were generated. CAD analysis was submitted and interpreted. COMPARISON: 2023, 2022, and 2021 BREAST PARENCHYMAL COMPOSITION: Not Dense: There are scattered areas of fibroglandular FINDINGS: No suspicious masses are seen. There are no suspicious calcifications. No unexplained architectural distortion is seen. There are no skin or nipple abnormalities identified. There is no adenopathy seen on the images submitted. IMPRESSION: No mammographic or sonographic evidence to suggest malignancy is seen. The patient may return to screening mammography as per ACR guidelines. BI-RADS 1 - Negative. Reviewed, dictated and finalized at location B. RICULTURE TEACHER IMPRESSION: No mammographic or sonographic evidence to suggest malignancy is seen. The katrin ent may return to screening mammography as per ACR guidelines. BI-RADS 1 - Negative.
== END 2025-10-13 10:56 | disposition home or self-care (01) ==
PROVIDERS: PCP Family Medicine; Visit Provider Nurse Practitioner
DX: Z12.31 Encounter for screening mammogram for malignant neoplasm of breast (principal)
CPT/HCPCS: 77063; 77067